=== PATIENT | female | born 1965 | race Caucasian/White ===

== ENCOUNTER → 2019-06-28 | Outpatient (CLI) | payer OTHER ==
[~2019-06-28] MED LIST: CELEXA 10 MG TA10 M1 PO; NEURONTIN300 MG PO; SPIRONOLACTONE50 MG PO
== END ==
LOC: M.PC 09:20
DX: M47.816 Spondylosis without myelopathy or radiculopathy, lumbar region (principal); M51.36 Other intervertebral disc degeneration, lumbar region